=== PATIENT | female | born 1975 | race Caucasian/White ===

== ENCOUNTER → 2016-09-17 | Outpatient (CLI) | payer BC, OTHER ==
--- NOTE | 2016-09-17 10:47 | US ---
Sonogram of the Abdomen Clinical Indications: Abdominal pain and left upper quadrant tenderness. Prior cholecystectomy. Comparison: CT abdomen and pelvis January 09, 2008. Findings: The visualized pancreas is unremarkable. The liver measures 15.4 cm in length. There are t wo echogenic nodules. In the inferior right lobe there is a 1.1 x 1.1 x 1.1 cm nodule, and in the dom e there is a 0.6 x 0.5 x 0.8 cm echogenic nodule. These likely correspond to the two hypoechoic nodul es present in 2007 that were too small to characterize at that time. The common bile duct is normal a t 3 mm. Gallbladder is absent. Hepatic vein and portal veins are patent. An echogenic lesion is seen in the spleen measuring 1.5 x 1.0 x 1.0 cm. This corresponds to a low den sity measuring 11 mm in the 2007 CT. The right kidney measures 4.4 x 4.3 x 10.0 cm with a 1.0 cm cortex. The left kidney measures 5.4 x 4.1 x 10.0 cm with 1.8 cm cortex. Impression: Two echogenic nodules in the liver and an echogenic nodule in the spleen correspond to l ow densities seen on the prior CT of 2007 and statistically most likely represent hemangiomas.
== END ==
LOC: BMCIMAGING 09:14
PROVIDERS: ATTEND Internal Medicine
DX: R93.2 Abnormal findings on diagnostic imaging of liver and biliary tract (principal); R10.9 Unspecified abdominal pain; R10.812 Left upper quadrant abdominal tenderness

== ENCOUNTER → 2016-12-07 | Outpatient (CLI) | payer BC | LOC: BMCIMAGING 14:42 | DX: Z12.31 Encounter for screening mammogram for malignant neoplasm of breast (principal) | CPT/HCPCS: G0202 ==

== ENCOUNTER → 2018-02-02 | Outpatient (CLI) | payer BC | LOC: BMCIMAGING 11:44 | PROVIDERS: ATTEND Physician Assistant Medical | DX: R05 Cough (principal) ==

== ENCOUNTER → 2018-02-18 | Outpatient (CLI) | payer BC ==
[~2018-02-18] MED LIST: LIDOCAINE 1% 300 MG/30 ML SDV ONE
--- NOTE | 2018-02-18 09:44 | PDRADPN ---
Radiology Procedure Note Date of Procedure: 02/18/18 Radiologist: Yousuf Hernández Anesthesia: Local (Specify) Pre-op Diagnosis: indeterminate thyroid nodule Post-op Diagnosis: same Indication: dx Procedure: US guided FNA Finding(s): Predominantly cystic nodule with internal debris and peripheral vascularity. Fluid aspirated and FNA collected from wall. Inf/Abcess present in the surg proc area at time of surgery?: No Complications: none Specimen(s): Six 25G FNA
== END ==
LOC: FIMAGING 08:27
PROVIDERS: ATTEND Internal Medicine Endocrinology, Diabetes & Metabolism
PROC: 0G9K3ZX Drainage of Thyroid Gland, Percutaneous Approach, Diagnostic (ICD-10-PCS; principal; 2018-02-18)
DX: E04.1 Nontoxic single thyroid nodule (principal)

== ENCOUNTER → 2019-01-10 | Outpatient (CLI) | payer BC | LOC: BMCIMAGING 08:42 | PROVIDERS: ATTEND Obstetrics & Gynecology | DX: Z12.31 Encounter for screening mammogram for malignant neoplasm of breast (principal) ==